=== PATIENT | female | born 1965 | race Caucasian/White ===

== ENCOUNTER → 2018-04-30 08:51 | Outpatient (CLI) | payer BC, SELFPAY ==
--- NOTE | 2018-04-30 08:52 | US_ITS ---
US breast RT complete INDICATION: Palpable abnormality of the right breast ORDERING PHYSICIAN: Dexter Weinstien MD PATIENT AGE: 52 years COMPARISON: 09/15/2014 TECHNIQUE: Standard ultrasound images performed FINDINGS: At 12:00 there is a 2.5 x 2.6 cm cyst with good through transmission of sound, no perceptible wall, and no internal echoes. This corresponds to the palpable abnormality. At 10:00 there is a 1 cm cyst. 1 cm cyst at 5:00 Small nodes are in the axilla. IMPRESSION: Palpable corresponds to a 2.5 cm cyst. Other cysts are also present. BI-RADS Category: 2 Benign Finding(s) Patient is currently due for screening mammogram With last mammogram having been performed in September 29, 2014 (A letter has been sent to the patient regarding results of the study.)
== END ==
PROVIDERS: PCP Family Medicine; Visit Provider Nurse Practitioner Obstetrics & Gynecology
DX: N60.11 Diffuse cystic mastopathy of right breast (principal)
CPT/HCPCS: 76641

== ENCOUNTER → 2018-05-03 14:55 | Outpatient (CLI) | payer BC, SELFPAY ==
--- NOTE | 2018-05-03 15:01 | US_ITS ---
ULTRASOUND THYROID HISTORY:. Bilateral thyroid glands removed. : HYPOTHYROISM,H/O TOTAL THYOIDECTOMY PROCEDURE: Multiple sagittal and transverse ultrasound images of the thyroid. Region COMPARISON. Is made to May 2012 enlarge right lobe with absent left lobe at that time FINDINGS Thyroid glands removed bilaterally. Loosely large inhomogeneous gland on right 2012 is been removed. RIGHT Lobe: Surgically absent. LEFT Lobe: Surgically absent. On the left there is a small area of tissue at the bed of the thyroid. 7.7 mm transverse x 7.9 mm length as 3.5 mm AP. The technologist question if this may reflect a residual area of left thyroid is there is some flow to this structure. However it is fairly hyperechoic for such and may merely reflect areas of fatty scarring. Nonspecific. Unimpressive. IMPRESSION: Right and left lobe is surgically removed. Small area of residual tissue at the bed of the left left thyroid noted. Nonspecific Although this could reflect a small piece of residual thyroid gland it is somewhat increased echogenicity for such. Thus may may reflect some focal fatty scarring in this region. Subtle minimal observation in either case
== END ==
PROVIDERS: PCP Family Medicine; Visit Provider Emergency Medicine
DX: E03.9 Hypothyroidism, unspecified (principal); E89.0 Postprocedural hypothyroidism
CPT/HCPCS: 76536

== ENCOUNTER → 2019-05-03 08:49 | Outpatient (CLI) | payer BC, SELFPAY ==
[2019-05-03 09:34] LABS: Basophils % 0.5 % (0.1-2.0); Eosinophils # 0.4 K/mm3 (0.0-0.4); Eosinophils % 8.8 % (0.1-12.0); Hematocrit 43.7 % (37.0-47.0); Hemoglobin 14.1 g/dL (12.2-16.2); Lymphocytes # 1.4 K/mm3 (0.7-4.5); Lymphocytes % 29.9 % (10-50); Mean Corpuscular HGB Conc 32.3 g/dL (31.8-35.4); Mean Corpuscular Hemoglobin 30.1 pg (27.0-31.2); Mean Corpuscular Volume 93.4 fl (81-99); Mean Platelet Volume 7.8 fl (7.4-10.4); Monocytes # 0.2 K/mm3 (0.1-1.0); Monocytes % 4.1 % (1.7-9.3); Neutrophils # 2.7 K/mm3 (1.8-7.8); Neutrophils % 56.7 % (37.0-80.0); Platelet Count 380 K/mm3 (142-424); Red Blood Count 4.68 M/mm3 (4.20-5.40); Red Cell Distribution Width 13.1 % (11.5-17.5); White Blood Count 4.7 K/mm3 (4.8-10.8)
[2019-05-03 10:31] LABS: Alanine Aminotransferase 25 U/L (12-78); Albumin Level 4.1 gm/dL (3.4-5.0); Albumin/Globulin Ratio 1.3 (1.1-1.8); Alkaline Phosphatase 75 U/L (46-116); Anion Gap 10.7 mEq/L (5-15); Aspartate Amino Transferase 17 U/L (15-37); Bilirubin,Total 0.5 mg/dL (0.2-1.0); Blood Urea Nitrogen 17 mg/dL (7-18); Calcium 9.7 mg/dL (8.5-10.1); Carbon Dioxide 34 mmol/L (21.0-32.0); Chloride 102 mmol/L (98-107); Chol/HDL Ratio 3.1 (1-3.5); Cholesterol 231 mg/dL (140-200); Creatinine,Serum 0.86 mg/dL (0.55-1.02); Estimated Glomerular Filt Rate 69 ml/min (>60); Free Thyroxine Index 3.3 ug/dL (5.93-13.13); GFR (African American) 83 ML/MIN (>60); Globulin 3.2 gm/dl (1.3-3.2); Glucose 95 mg/dL (74-106); HDL Cholesterol 75 mg/dL (29-89); LDL Cholesterol 145 mg/dL (0-130); Potassium 4.7 mmoL/L (3.5-5.1); Sodium 142 mmol/L (136-145); T4 (Thyroxine) 9.9 ug/dl (4.7-13.3); Thyroid Stimulating Hormone 0.38 uIU/ml (0.358-3.740); Total Protein,Serum 7.3 gm/dL (6.4-8.2); Triglycerides 53 mg/dL (30-200); Triiodothryronine (T3) Uptake 33 % (31-39); VLDL Cholesterol 11 mg/dL (0-40)
[2019-05-04 10:50] LABS: Triiodothyronine (T3) Free 2.9 pg/mL (2.0-4.4)
== END ==
PROVIDERS: Visit Provider Nurse Practitioner Obstetrics & Gynecology
DX: Z01.419 Encounter for gynecological examination (general) (routine) without abnormal findings (principal); R53.83 Other fatigue
CPT/HCPCS: 36415; 80053; 80061; 84436; 84443; 84479; 84481; 85025

== ENCOUNTER → 2019-05-06 12:44 | Outpatient (CLI) | payer BC, SELFPAY ==
--- NOTE | 2019-05-06 13:00 | US_ITS ---
PROCEDURE: US THYROID CLINICAL INDICATION: HYPOTHYROIDISM,S/P THYROIDECTOMY Evaluate for residual thyroid tissue COMPARISON: THY US thyroid from 05/03/2018 FINDINGS: Patient has had prior bilateral thyroidectomy. As before there was a questionable small amount of residual tissue on the left at 10 x 4 mm. This however is questionable. No evidence of residual tissue on the right.. IMPRESSION: Questionable residual small amount of thyroid tissue on the left as before Dictated by: Cade Bai MD 05/06/2019 17:28 Electronically signed by Cade Bai MD in [place] 05/06/2019 17:28
== END ==
PROVIDERS: PCP Family Medicine; Visit Provider Emergency Medicine
DX: E03.9 Hypothyroidism, unspecified (principal); Z98.890 Other specified postprocedural states
CPT/HCPCS: 76536

== ENCOUNTER → 2019-07-19 16:24 | Outpatient (CLI) | payer BC, SELFPAY | PROVIDERS: Visit Provider Urology | DX: N39.0 Urinary tract infection, site not specified (principal) | CPT/HCPCS: 87086 ==

== ENCOUNTER → 2019-09-20 09:20 | Outpatient (POV) | payer BC, SELFPAY | PROVIDERS: Visit Provider Dermatology | DX: Z00.00 Encounter for general adult medical examination without abnormal findings (principal) ==

== ENCOUNTER → 2020-01-27 09:04 | Outpatient (CLI) | payer BC, SELFPAY ==
[2020-01-27 10:06] LABS: Anion Gap 8.7 mEq/L (5-15); Blood Urea Nitrogen 16 mg/dl (7-17); Calcium 9.6 mg/dl (8.4-10.2); Carbon Dioxide 34 mmol/L (22.0-30.0); Chloride 99 mmol/L (98-107); Chol/HDL Ratio 2.9 (1-3.5); Cholesterol 239 mg/dl (140-200); Estimated Glomerular Filt Rate 58 ml/min (>60); GFR (African American) 70 ML/MIN (>60); Glucose 98 mg/dl (74-100); HDL Cholesterol 83 mg/dl (40-60); Potassium 4.7 mmoL/L (3.5-5.1); Sodium 137 mmol/L (136-145); Triglycerides 63 mg/dl (30-150); VLDL Cholesterol 13 mg/dL (0-40)
[2020-01-27 10:17] LABS: Direct LDL Cholesterol 130.09 mg/dL (100-129)
[2020-01-27 10:22] LABS: Free T4 (Free Thyroxine) 0.92 ng/dl (0.78-2.19)
[2020-01-27 10:36] LABS: Thyroid Stimulating Hormone 6.11 uIU/mL (0.465-4.68)
== END ==
PROVIDERS: Visit Provider Physician Assistant
DX: E03.9 Hypothyroidism, unspecified (principal); R94.4 Abnormal results of kidney function studies; Z13.220 Encounter for screening for lipoid disorders
CPT/HCPCS: 36415; 80048; 80061; 84439; 84443

== ENCOUNTER → 2020-05-01 14:13 | Outpatient (POV) | payer BC, SELFPAY | PROVIDERS: Visit Provider Dermatology | DX: Z00.00 Encounter for general adult medical examination without abnormal findings (principal) ==

== ENCOUNTER → 2020-12-18 10:54 | Outpatient (POV) | payer BC, SELFPAY | PROVIDERS: Visit Provider Dermatology | DX: Z00.00 Encounter for general adult medical examination without abnormal findings (principal) ==

== ENCOUNTER → 2021-09-09 10:50 | Outpatient (CLI) | payer BC, SELFPAY ==
--- NOTE | 2021-09-09 10:54 | XR_ITS ---
FINAL REPORT CLINICAL HISTORY: KNEE EFFUSION, LT, chronic pain FINDINGS: Three views of the left knee reveal no evidence of fracture or dislocation. The bony alignment is normal. There are mild degenerative changes. There is no evidence of joint effusion. No localized soft tissue abnormality is seen. IMPRESSION: No acute abnormality identified. Reviewed, Interpreted and Dictated by Giles Singh III, MD Transcribed by Leyda Ortega Authenticated by Giles Singh III, MD on 09/09/2021 12:34:51 PM [facility]
--- NOTE | 2021-09-09 10:54 | XR_ITS ---
FINAL REPORT CLINICAL HISTORY: LT HAND PAIN, chronic, no known injury FINDINGS: LEFT HAND Three views demonstrate no acute fracture or dislocation. The visualized joint spaces are normally aligned. There are mild degenerative changes at the first carpometacarpal joint. The soft tissues are unremarkable. IMPRESSION: No acute process. Reviewed, Interpreted and Dictated by Giles Singh III, MD Transcribed by Leyda Ortega Authenticated by Giles Singh III, MD on 09/09/2021 12:34:58 PM [facility]
== END ==
PROVIDERS: PCP Family Medicine; Visit Provider Nurse Practitioner Family
DX: M25.462 Effusion, left knee (principal); M79.642 Pain in left hand
CPT/HCPCS: 73130; 73562

== ENCOUNTER → 2021-12-31 09:14 | Outpatient (POV) | payer BC, SELFPAY | PROVIDERS: Visit Provider Dermatology | DX: Z00.00 Encounter for general adult medical examination without abnormal findings (principal) ==

== ENCOUNTER 2022-08-10 09:16 | Emergency (ER) | payer BC, OTHER, SELFPAY ==
--- NOTE | 2022-08-10 09:22 | EXP.UTC ---
Discharge Plan Disposition Patient Disposition: Home, Self-Care Condition: Good Prescriptions Prescriptions: New azithromycin [Zithromax] 250 mg tablet 250 mg PO UD DOSE PK Qty: 6 0RF Rx Instructions: Take two (2) tablets today, then one (1) tablet days #2 thru #5 benzonatate [benzonatate] 100 mg capsule 100 mg PO TIDP PRN (Reason: Cough) Qty: 30 0RF methylprednisolone 4 mg Tablets,Dose Pack 4 mg PO DIRECTED Qty: 21 0RF No Action levothyroxine 88 MCG tablet 88 mcg PO DAILY duloxetine 60 MG capsule,delayed release(DR/EC) 60 mg PO DAILY trazodone 50 mg tablet 50 mg PO HS rosuvastatin 5 mg tablet 5 mg PO HS Referrals Follow up/Referrals: Lyly Bradley MD [Primary Care Provider] - See instructions Activity Restrictions/Add. Instructions Additional Instructions/Restrictions: Drink plenty of fluids. Take tylenol or ibuprofen for pain or fever. Take the medications as directed. Follow up with your regular doctor. GO TO THE ER FOR ANY WORSENING SYMPTOMS Clinical Impressions Clinical Impression: Bronchitis Instructions Patient Instructions: Acute Bronchitis, DI for Acute Bronchitis Discharge ED Provider: Demetrio Gibbs [facility] [place] General Stated complaint: Sore throat,fever Time Seen by Provider: 08/10/22 09:22 History of Present Illness Provider Complaint: She states that for the past 2 days she has had chest congestion, sinus congestion and sore throat. Related Data Home Medications Medication Instructions Recorded Confirmed duloxetine 60 mg capsule,delayed 60 mg PO DAILY Depression 04/18/18 08/10/22 release levothyroxine 88 mcg tablet 88 mcg PO DAILY THYROID REPLACEMENT 04/18/18 08/10/22 rosuvastatin 5 mg tablet 5 mg PO HS Cholesterol 08/10/22 08/10/22 trazodone 50 mg tablet 50 mg PO HS SLEEP 08/10/22 08/10/22 Previous Rx's Medication Instructions Recorded azithromycin 250 mg tablet 250 mg PO UD DOSE PK #6 tabs 08/10/22 (Zithromax) benzonatate 100 mg capsule 100 mg PO TIDP PRN Cough #30 caps 08/10/22 methylprednisolone 4 mg tablets in 4 mg PO DIRECTED #21 tabs 08/10/22 a dose pack Allergies Allergy/AdvReac Type Severity Reaction Status Date / Time No Known Drug Allergies Allergy Unknown Verified 07/19/19 15:15 [NO KNOWN DRUG ALLERGIES] [facility] Disclaimer: The information contained in this section may have been updated after the patient was seen, as this information can be updated by other users. Medical History Anxiety Depression Hyperlipidemia Thyroid disease Urinary tract infection Surgical History History of tonsillectomy Social History Smoking Status: Never smoker alcohol intake: never substance use type: denies use current occupational status: employed Travel in the last 8 weeks: None housing: house caffeine: No ROS Obtained: Yes All systems reviewed & no additional complaints except as documented Constitutional Constitutional: Reports chills and Reports fever(s) Eyes Eyes: Denies eye discharge ENT Ears, Nose, Mouth, and Throat: Reports as per HPI Cardiovascular Cardiovascular: Denies chest pain Respiratory Respiratory: Denies chest congestion and Reports cough Gastrointestinal Gastrointestingal: Reports nausea; Denies abdominal pain, constipation, cramping, diarrhea or vomiting Musculoskeletal Musculoskeletal: Denies arthralgias Integumentary/Breasts Skin/Breast: Denies rash Neurologic Neurologic: Denies paresthesias Physical Exam General General appearance: alert and in no apparent distress Head Head exam: atraumatic, normocephalic and normal inspection Eye Eye exam: Present normal appearance, PERRL and EOMI ENT ENT exam: Present normal exam, normal oropharynx, mucous membranes moist, TM's normal jose manuel
[2022-08-10 09:30] VITALS: BP 122/69; PULSE 70; RESP 20; TEMP 36.6; O2SAT 97; BMI 22.0
[2022-08-10 09:43] LABS: UTC Strep Screen (Rapid) Negative (Negative)
[2022-08-10 10:27] VITALS: BP 122/69; PULSE 70; RESP 20; TEMP 36.6; O2SAT 97
[2022-08-10 10:45] LABS: Adenovirus,PCR Not Detected (NotDetected); Bordetella Pertussis Not Detected (NotDetected); Chlamydophila Pneumoniae, PCR Not Detected (NotDetected); Coronavirus 19, PCR Not Detected (NotDetected); Coronavirus 229E Not Detected (NotDetected); Coronavirus NL63 Not Detected (NotDetected); Coronavirus OC43 Not Detected (NotDetected); Coronovirus HKU1,PCR Not Detected (NotDetected); Human Metapneumovirus Not Detected (NotDetected); Influenza A, PCR Not Detected (NotDetected); Influenza AH1, 2009 Not Detected (NotDetected); Influenza AH1, PCR Not Detected (NotDetected); Influenza AH3,PCR Not Detected (NotDetected); Influenza B, PCR Not Detected (NotDetected); Mycoplasma Pneumoniae, PCR Not Detected (NotDetected); Parainfluenza 1, PCR Not Detected (NotDetected); Parainfluenza 2, PCR Not Detected (NotDetected); Parainfluenza 3, PCR Not Detected (NotDetected); Parainfluenza 4, PCR Not Detected (NotDetected); Respiratory Syncytial Virus Not Detected (NotDetected); Rhinovirus/Enterovirus Not Detected (NotDetected)
== END 2022-08-10 10:30 | disposition home or self-care (01) ==
PROVIDERS: Emergency Provider Nurse Practitioner Family; PCP Family Medicine
DX: J40 Bronchitis, not specified as acute or chronic (principal)
CPT/HCPCS: 87581; 87632; 87798; 87880; 99212; 99213; C9803; G0463; U0003; U0005

== ENCOUNTER → 2022-11-06 10:31 | Outpatient (CLI) | payer BC, OTHER, SELFPAY ==
--- NOTE | 2022-11-06 10:40 | CT_ITS ---
FINAL REPORT TECHNIQUE: Thin section axial images were obtained from the lung bases to the pubic symphysis without IV contrast. Coronal reconstruction images were obtained from the axial data. Exam was performed using dose reduction technique. CLINICAL HISTORY: Abdominal pain COMPARISON: none FINDINGS: There are no renal or ureteral stones. There is no hydronephrosis or perinephric stranding. The gallbladder is present. The remaining unenhanced solid abdominal organs are unremarkable. There is no evidence of small bowel obstruction. The appendix is normal. There are mildly thickened small bowel loops in the left abdomen. Enteritis can have this appearance. The uterus is present. There is free fluid in the pelvis which may be physiologic. There is no lymphadenopathy. No acute osseous abnormality is identified. IMPRESSION: No renal or ureteral stone. No hydronephrosis. Fluid-filled mildly thick walled small bowel loops in the left abdomen which can be seen with enteritis. Reviewed, Interpreted and Dictated by Katie Mi MD Transcribed by Annabelle Wilkins Authenticated and [facility]
[2022-11-06 13:47] LABS: Alanine Aminotransferase 31 U/L (12-78); Albumin Level 4.6 g/dl (3.5-5.0); Albumin/Globulin Ratio 1.8 (1.1-1.8); Alkaline Phosphatase 61 U/L (38-126); Amylase 66 U/L (30-110); Anion Gap 12.1 mEq/L (5-15); Aspartate Amino Transferase 33 U/L (14-36); Bilirubin,Total 0.5 mg/dl (0.2-1.3); Blood Urea Nitrogen 15 mg/dl (7-17); Calcium 9.4 mg/dl (8.4-10.2); Carbon Dioxide 34 mmol/L (22.0-30.0); Chloride 97 mmol/L (98-107); Estimated Glomerular Filt Rate 64 ml/min (>60); GFR (African American) 78 ML/MIN (>60); Globulin 2.6 g/dL (1.3-3.2); Glucose 95 mg/dl (74-100); Lipase 77 U/L (23-300); Potassium 5.1 mmoL/L (3.5-5.1); Sodium 138 mmol/L (136-145); Total Protein,Serum 7.2 g/dl (6.3-8.2)
== END ==
PROVIDERS: PCP Family Medicine; Visit Provider Physician Assistant
DX: R10.13 Epigastric pain (principal)
CPT/HCPCS: 36415; 74176; 80053; 82150; 83690

== ENCOUNTER 2023-04-29 20:24 | Emergency (ER) | payer BC, OTHER, SELFPAY ==
[2023-04-29] VITALS (7 sets, daily range): BP systolic 122–146; BP diastolic 68–85; PULSE 61–77; RESP 15–20; TEMP 36.5–36.7; O2SAT 97–99; BMI 21.8
--- NOTE | 2023-04-29 20:35 | XR_ITS ---
PROCEDURE INFORMATION: Exam: XR Right Ankle Exam date and time: 04/29/2023 9:01 PM Age: 57 years old Clinical indication: Injury or trauma; Fall; Blunt trauma; Right; Injury date: 04-29-23; Injury details: Jumped off fence injuring RT lat ankle and heel; Additional info: Fall, unable to bear weight TECHNIQUE: Imaging protocol: Radiologic exam of the right ankle. Views: 3 or more views. COMPARISON: No relevant prior studies available. FINDINGS: Bones/joints: Mildly displaced and minimally comminuted joint depression type calcaneus fracture. Calcaneal Achilles enthesophyte. Soft tissues: Heel soft tissue swelling. IMPRESSION: Mildly displaced and minimally comminuted joint depression type calcaneus fracture.
--- NOTE | 2023-04-29 20:35 | XR_ITS ---
PROCEDURE INFORMATION: Exam: XR Right Foot Exam date and time: 04/29/2023 9:01 PM Age: 57 years old Clinical indication: Injury or trauma; Fall; Blunt trauma; Foot; Right; Injury date: 04-29-23; Injury details: Jumped off fence injuring RT lat ankle and heel; Additional info: Fall; Unable to bear weight TECHNIQUE: Imaging protocol: Radiologic exam of the right foot. Views: 3 or more views. COMPARISON: No relevant prior studies available. FINDINGS: Bones/joints: Mildly displaced and minimally comminuted joint depression type calcaneus fracture. Calcaneal Achilles enthesophyte. Soft tissues: Heel soft tissue swelling. IMPRESSION: Mildly displaced and minimally comminuted joint depression type calcaneus fracture.
--- NOTE | 2023-04-29 20:36 | XR_ITS ---
PROCEDURE INFORMATION: Exam: XR Right Tibia and Fibula Exam date and time: 04/29/2023 9:01 PM Age: 57 years old Clinical indication: Injury or trauma; Fall; Blunt trauma; Lower leg; Right; Injury date: 04-29-23; Injury details: Jumped off fence injuring RT lat ankle and heel; Additional info: Fall, unable to bear weight TECHNIQUE: Imaging protocol: Radiologic exam of the right tibia and fibula. Views: 2 views. COMPARISON: No relevant prior studies available. FINDINGS: Bones/joints: Calcaneus fracture better visualized on dedicated foot and ankle radiographs. Soft tissues: Unremarkable. IMPRESSION: Calcaneus fracture better visualized on dedicated foot and ankle radiographs.
--- NOTE | 2023-04-29 20:45 | XR_ITS ---
PROCEDURE INFORMATION: Exam: XR Right Calcaneus Exam date and time: 04/29/2023 9:04 PM Age: 57 years old Clinical indication: Injury or trauma; Fall; Blunt trauma; Other: Calcaneous; Injury date: 04-29-23; Injury details: Jumped off fence injuring RT lat ankle and heel; Additional info: Calc pain after fall TECHNIQUE: Imaging protocol: Radiologic exam of the right calcaneus. Views: 2 or more views. COMPARISON: CR XR ANKLE RT MIN 3V 04/29/2023 9:01 PM FINDINGS: Bones/joints: Mildly displaced and minimally comminuted joint depression type calcaneus fracture. Calcaneal Achilles enthesophyte. Soft tissues: Heel soft tissue swelling. IMPRESSION: Mildly displaced and minimally comminuted joint depression type calcaneus fracture.
--- NOTE | 2023-04-29 21:06 | HMH.EDGENADL ---
Discharge Plan Disposition Patient Disposition: Xfer Short-Term Hosp Chief Complaint: Extremity Injury, Lower Prescriptions Prescriptions: No Action famotidine 20 mg tablet 40 mg PO DAILY Qty: 180 3RF rosuvastatin 10 mg tablet 10 mg PO DAILY Qty: 90 0RF omeprazole 20 mg capsule,delayed release(DR/EC) 40 mg PO DAILY Qty: 180 2RF levothyroxine 88 MCG tablet 88 mcg PO DAILY duloxetine 60 MG capsule,delayed release(DR/EC) 60 mg PO DAILY trazodone 50 mg tablet 50 mg PO HS Referrals Follow up/Referrals: Lyly Bradley MD [Primary Care Provider] - See instructions Clinical Impressions Clinical Impression: Closed displaced fracture of calcaneus Qualifiers: Encounter type: initial encounter Calcaneus location: body Laterality: right Qualified Code(s): S92.011A - Displaced fracture of body of right calcaneus, initial encounter for closed fracture Discharge ED Provider: Everett Russo General Adult HPI General Chief complaint: Extremity Injury, Lower Stated complaint: AO 04/29 fall, right heel pain Time Seen by Provider: 04/29/23 20:27 Mode of Arrival: Family Vehicle Source of Information: Patient Limitations: No Limitations Description of Symptoms (Recalled from ER Triage Doc. by RN): 57 yo female presents after landing incorrectly [place]uring her right heel. Denies any intake of pain meds. Attempted to use some ice but is worried it is really messed up . Unable to bear weight on that leg. minimal swelling. History of Present Illness HPI narrative: 57-year-old female with no relevant medical history presenting with right foot injury. Patient states that she jumped over a fence just prior to arrival, landed on a rock. [place] immediate pain in her right heel, unable to bear weight secondary to severe pain. No other injury was sustained. Severe, nonradiating, stabbing pain right heel. No neurovascular deficits. Related Data Home Medications Medication Instructions Recorded Confirmed duloxetine 60 mg capsule,delayed 60 mg PO DAILY Depression 04/18/18 04/28/23 release levothyroxine 88 mcg tablet 88 mcg PO DAILY THYROID REPLACEMENT 04/18/18 04/28/23 trazodone 50 mg tablet 50 mg PO HS SLEEP 08/10/22 04/28/23 Previous Rx's Medication Instructions Recorded famotidine 20 mg tablet 40 mg PO DAILY GERD #180 tabs 04/29/23 omeprazole 20 mg capsule,delayed 40 mg PO DAILY GERD #180 caps 04/29/23 release rosuvastatin 10 mg tablet 10 mg PO DAILY #90 tabs 04/29/23 Allergies Allergy/AdvReac Type Severity Reaction Status Date / Time No Known Drug Allergies Allergy Unknown Verified 04/28/23 15:06 [NO KNOWN DRUG ALLERGIES] [facility] Disclaimer: The information contained in this section may have been updated after the patient was seen, as this information can be updated by other users. Medical History Anxiety Depression GERD (gastroesophageal reflux disease) Hyperlipidemia Thyroid disease Urinary tract infection Surgical History History of tonsillectomy Social History Smoking Status: Unknown if ever smoked alcohol intake: never substance use type: denies use current occupational status: employed Travel in the last 8 weeks: None housing: house caffeine: No ROS Obtained: Yes All systems reviewed & no additional complaints except as documented Physical Exam General General appearance: alert, in no apparent distress and other ( ) Head Head exam: atraumatic and normocephalic Eye Eye exam: Present normal appearance, PERRL and EOMI ENT ENT exam: Present mucous membranes moist Neck Neck exam: Present normal inspection, full ROM and trachea midline Respiratory Respiratory exam: Absent respiratory distress, wheezes, stridor, accessory muscle use
--- NOTE | 2023-04-29 21:20 | CT_ITS ---
PROCEDURE INFORMATION: Exam: CT Right Lower Extremity Without Contrast, Ankle Exam date and time: 04/29/2023 9:44 PM Age: 57 years old Clinical indication: Abnormal findings; Abnormal imaging study; XR calcaneus; Additional info: Fracture eval TECHNIQUE: Imaging protocol: CT of the right lower extremity without contrast was performed. Exam focused on the ankle. 3D rendering (Not supervised by radiologist): MIP and/or 3D reconstructed images were created by the technologist. Radiation optimization: All CT scans at this facility use at least one of these dose optimization techniques: automated exposure control; mA and/or kV adjustment per patient size (includes targeted exams where dose is matched to clinical indication); or iterative reconstruction. REPORTING DATA: Count of CT and Cardiac NM exams in prior 12 months: This patient has received [address] and 0 known cardiac nuclear medicine studies in the 12 months prior to the current study. COMPARISON: CR XR ANKLE RT MIN 3V 04/29/2023 9:01 PM FINDINGS: Bones/joints: Comminuted calcaneal depression type fracture with fracture lines extending from the plantar surface of the calcaneal tuberosity to the angle of [place] and another fracture line extends just posterior to the posterior subtalar facet. 2-3 mm of posterior facet fragment depression. Remaining bones are intact and normal alignment. Calcaneal Achilles enthesophyte. Soft tissues: Hindfoot subcutaneous soft tissue edema. Soft tissue stranding within Kager's fat pad. IMPRESSION: Mildly displaced and comminuted calcaneus depression type fracture as above.
--- NOTE | 2023-04-29 21:41 | PC.NURSE ---
pt transported to CT scan
--- NOTE | 2023-04-29 21:50 | PC.NURSE ---
Called [facility] about transfer of the pt for Ortho. [facility] to call back with details. MARIAELENA
--- NOTE | 2023-04-29 22:11 | PC.NURSE ---
called back, speaking to Dr Russo now. CR
--- NOTE | 2023-04-29 22:28 | PC.NURSE ---
called report to Parul EL at [facility]. pt getting transferred to ER for calcaneous fx and will be going by [facility]
--- NOTE | 2023-04-29 22:29 | PC.NURSE ---
Per Dr Russo, pt placed in a short leg posterior splint on her Right ankle/leg. Pt given instructions on care. CR
--- NOTE | 2023-04-29 22:40 | PC.NURSE ---
PT signed paperwork and resting comfortably awaiting for ride to show up. offered patient drink and warm blanket
--- NOTE | 2023-04-29 23:32 | PC.NURSE ---
pt florenciae present in ER, gave folder of paperwork to taxi driver supervisor and patient assisted to car in wheelchair
== END 2023-04-29 23:34 | disposition short-term general hospital (02) ==
PROVIDERS: Emergency Provider Emergency Medicine; PCP Family Medicine
DX: S92.011A Displaced fracture of body of right calcaneus, initial encounter for closed fracture (principal); F41.9 Anxiety disorder, unspecified; F32.A Depression, unspecified; K21.9 Gastro-esophageal reflux disease without esophagitis; E78.5 Hyperlipidemia, unspecified; E07.9 Disorder of thyroid, unspecified; W22.8XXA Striking against or struck by other objects, initial encounter
CPT/HCPCS: 73590; 73610; 73630; 73650; 73700; 99285

== ENCOUNTER → 2023-05-26 14:03 | Outpatient (CLI) | payer BC, OTHER, SELFPAY | PROVIDERS: PCP Family Medicine; Visit Provider Nurse Practitioner | DX: R00.2 Palpitations (principal) | CPT/HCPCS: 93270 ==

== ENCOUNTER → 2023-05-29 06:22 | Outpatient (CLI) | payer BC, OTHER, SELFPAY ==
--- NOTE | 2023-05-29 | CA_ITS ---
APPROVED REPORT Exam: Pharmacologic Technologist: Mita Asher, Ht: 5 ft 9 in Wt: 146 lbs BSA: 1.81 m2 HR: 71 bpm BP: 107/68 mmHg Rhythm: NSR Medical History Medications: Omeprazole,,,,, Levothyroxine,,,,, Famotidine,,,,, DulOXETINE,,,,, Trazodone,,,,, Hydroxychloroquine,,,,, RoSUVASTATIN,,,,, Stress Test Details Test: LEXISCAN Reason for pharmacologic stress test: physical limitation. HR Resting HR: 73 bpm Max Heart Rate (APMHR): 162 bpm Max HR Achieved: 111 bpm Target HR (85% APMHR): 138 bpm % of APMHR: 69 Recovery HR: 84 bpm BP Resting BP: 107.0/68.0 mmHg Max BP: 119.0/64.0 mmHg Recovery BP: 114.0/68.0 mmHg ECG Resting ECG: NSR, rightward axis, ST abns inferiorly & laterally Stress ECG: No significant ST changes Arrhythmia: None Clinical Exercise duration: 04:06 min Highest Stage Achieved: Exercise capacity: 1.0 METs Stress ECG Conclusion Symptoms: Chest heaviness, mild SOA, mild head & stomach discomfort. Arrhythmias/Ectopy: None. ST-T Changes: No significant ST changes Conclusion: Nondiagnostic Lexiscan stress test due to baseline abnormalities. Myoview images reported separately. Test Summary REST . . . . . . . Resting REST 05:15 . . 73 . 107/ 68 . . Stage 1 01:00 . . 90 . . . . Stage 2 01:00 . . 108 . 119/ 64 . . Stage 3 01:00 . . 104 . 117/ 68 . . Stage 4 01:00 . . 96 . 105/ 67 . . Stage 4 01:06 . . 97 . 105/ 67 . Stop exercise at 04:06 RECOVERY 01:00 . . 98 . . . . RECOVERY 02:00 . . 93 . 105/ 74 . . RECOVERY 03:00 . . 85 . 105/ 74 . . RECOVERY 04:00 . . 90 . 114/ 68 . . RECOVERY 05:00 . . 85 . 114/ 68 . . RECOVERY 05:19 . . 88 . 114/ 68 . . Electronically signed by : Lindsey Calderón MD 05/31/2023 22:38:01
--- NOTE | 2023-05-29 06:26 | NM_ITS ---
APPROVED REPORT Exam: Nuclear Stress Test Indication: CHEST PAIN..FATIGUE Patient Location: Outpatient Stress Tech: Mita Church [place] Tech:Vandana Collazo JOENelson RT(R)(N) Ht: 5 ft 9 in Wt: 148 lbs Bra Size: 36C HR: 73 bpm BP: 107/68 mmHg BSA: 1.82 m2 TID: 1.10 BMI: 21.8 History: CHEST PAIN..FATIGUE Procedure: Patient received 0.4 mg of intravenous Lexiscan, resting heart rate 73 bpm, resting blood pressure 107/68 mmHg, with Lexiscan maximum heart rate achieved was 111 bpm which is 85 % of the maximum predicted heart rate and blood pressure was 119/64 mmHg. With Lexiscan, patient denied any complaint of chest pain. Cardiac Stress and Resting SPECT Images: Cardiac Stress and Resting SPECT images were obtained using technetium 99m Myoview 32.8 mCi stress and 10.66 mCi at rest. Resting and stress imaging in supine and prone positions demonstrate no evidence of fixed or reversible perfusion defects. Gated imaging demonstrates normal global and regional LV systolic function. LVEF is calculated at 56%. Conclusion: No evidence of fixed or reversible perfusion defects. Gated imaging demonstrates normal global and regional LV systolic function. LVEF is calculated at 56%. Electronically signed by : Lindsey Calderón MD 05/31/2023 22:39:23
== END ==
PROVIDERS: PCP Family Medicine; Visit Provider Nurse Practitioner
DX: R07.9 Chest pain, unspecified (principal); R94.31 Abnormal electrocardiogram [ECG] [EKG]
CPT/HCPCS: 78452; 93017; A9502; J2785

== ENCOUNTER → 2023-06-02 13:40 | Outpatient (CLI) | payer BC, OTHER, SELFPAY ==
--- NOTE | 2023-06-02 13:43 | CA_ITS ---
APPROVED REPORT EXAM: Comprehensive 2D, Doppler, and color-flow Echocardiogram Ambulatory Nurse: Mariluz Rico CRT Ht: 5 ft 9 in Wt: 146lbs BSA: 1.81 BP: 114/76 mmHg Indications: Chest Pain, Hyperlipidemia, connective tissue disorder 2D Dimensions LVOT 1.98 cm (M/F) 1.5-2.5 M-Mode Dimensions RVDd 2.02 cm (0.9-2.6) LA Diam 2.08 cm (1.9-4.0) LVDd 4.33 cm (3.5-5.7) Ao Diam 3.31 cm (2.0-3.7) LVDs 2.82 cm (3.5-5.7) IVSd 1.00 cm (0.6-1.1) PWd 0.71 cm (0.6-1.1) EF (Teich) 64.30% FS 34.90% EDV (Teich) 84.40 mL TAPSE 2.19 (<1.7) ESV (Teich) 30.10 mL LV Diastology E Decel Time 240.00 (160-240 msec) E/A Ratio 0.97 MED E' 7.80 (< 7 cm/sec) MED A' 10.20 cm/s E'/MED E' Ratio 5.86 (>14) LAT E' 8.90 (<10 cm/sec) LAT A' 13.20 cm/s E/LAT E' Ratio 5.13 (>14) Aortic Valve AO Peak GR. 3.50 mmHg Mitral Valve MV A Velocity 47.00 (40-130 cm/s) E/A Ratio 0.97 MV Decel. Time 240.00 (160-240 ms) Tricuspid Valve TR P. Velocity 212.00 cm/s RAP Estimate 10.00 mmHg RVSP 28.00 mmHg Left Ventricle The left ventricle is normal size. The left ventricular systolic function is normal. The left ventricular ejection fraction is within the normal range. There is normal left ventricular wall thickness. There is normal LV segmental wall motion. The left ventricular diastolic function is normal. LVEF is 60-65%. Right Ventricle The right ventricle is mildly dilated. The right ventricular systolic function is normal. Atria The left atrium size is normal. The right atrium size is normal. There is no Doppler evidence of interatrial shunt. Aortic Valve The aortic valve opens well. There is no aortic valvular stenosis. No aortic regurgitation is present. Mitral Valve The mitral valve is normal in structure. No evidence of mitral valve stenosis. There is no mitral valve regurgitation noted. Tricuspid Valve The tricuspid valve leaflets are thin and pliable. Trace tricuspid regurgitation. There is insufficient TR jet to estimate RVSP. Pulmonic Valve The pulmonary valve is normal in structure. Trace pulmonic regurgitation. Great Vessels The aortic root is normal in size. The ascending aorta is normal in size. IVC is normal in size and collapses >50% with inspiration. Pericardium There is no pericardial effusion. Other Information Study Quality: Technically Difficult Conclusion This was a technically difficult study due to poor acoustic windows. Normal biventricular systolic function. Mild RV dilatation. No significant valvular stenosis or regurgitation. Electronically signed by : Lindsey Calderón MD 06/03/2023 15:02:26
== END ==
PROVIDERS: PCP Family Medicine; Visit Provider Nurse Practitioner
DX: R07.9 Chest pain, unspecified (principal); R94.31 Abnormal electrocardiogram [ECG] [EKG]
CPT/HCPCS: 93306

== ENCOUNTER 2023-08-18 09:25 | Outpatient (CLI) | payer BC, OTHER, SELFPAY ==
--- NOTE | 2023-08-18 09:31 | XR_ITS ---
FINAL REPORT CLINICAL HISTORY: RT FOOT FX W/ROUTINE HEALING, POST MENOPAUSAL FINDINGS: Using L1-4, the bone mineral density of the spine is 0.956 g/cm2, corresponding to T-score of -0.8. Using the left hip, the bone mineral density of the femoral neck is 0.690 g/cm2, corresponding to a T-score of -1.4. Equivalent to a 12% risk for major osteoporotic fracture. Using the right hip, the bone mineral density of the femoral neck is 0.667 g/cm2, corresponding to a T-score of -1.6. Equivalent to a 13% risk for major osteoporotic fracture. IMPRESSION: Diminished bone mineral density of the bilateral hip consistent with osteopenia. Normal bone mineral density of the lumbar spine. Reviewed, Interpreted and Dictated by Giles Singh III, MD Transcribed by Hadley Calvert Authenticated and [facility]
== END 2023-08-18 23:59 ==
LOC: RAD 09:26
PROVIDERS: PCP Family Medicine; Visit Provider Nurse Practitioner Family
DX: Z13.820 Encounter for screening for osteoporosis (principal); S92.901D Unspecified fracture of right foot, subsequent encounter for fracture with routine healing; M85.89 Other specified disorders of bone density and structure, multiple sites
CPT/HCPCS: 77080

== ENCOUNTER 2023-11-03 14:53 | Outpatient (POV) | payer BC, OTHER, SELFPAY | END 2023-11-03 23:59 | disposition home or self-care (01) | LOC: SC 14:53 | PROVIDERS: PCP Family Medicine; Visit Provider Dermatology | DX: Z00.00 Encounter for general adult medical examination without abnormal findings (principal) ==

== ENCOUNTER 2025-06-27 09:38 | Outpatient (CLI) | payer BC, OTHER, SELFPAY ==
--- NOTE | 2025-06-27 09:44 | XR_ITS ---
FINAL REPORT CLINICAL HISTORY: CERVICAL DISC DISEASE COMPARISON: 12/29/2016 FINDINGS: CERVICAL SPINE 5 views were obtained. There is no acute fracture or malalignment. Moderate disc space narrowing at C5-6 and C6-7. Small posterior osteophytes are noted at C5-6 and C6-7. The facets are properly aligned. Neural foramina are adequately patent. IMPRESSION: Degenerative/chronic changes without acute process. Reviewed, Interpreted and Dictated by Tim Solis MD Transcribed by Annbaelle Wilkins Authenticated and [facility]
== END 2025-06-27 23:59 | disposition home or self-care (01) ==
LOC: RAD 09:40
PROVIDERS: PCP Nurse Practitioner Family; Visit Provider Nurse Practitioner Family
DX: M47.812 Spondylosis without myelopathy or radiculopathy, cervical region (principal)
CPT/HCPCS: 72050

== ENCOUNTER 2025-07-25 15:00 | Outpatient (RCR) | payer BC, OTHER, SELFPAY ==
--- NOTE | 2025-07-11 15:03 | HMH.PTOPEV ---
PT Evaluation Rehab PT Outpatient Evaluation Start: 07/11/25 14:49 Freq: Status: Active Protocol: Document 07/11/25 14:52 PHORTRAE (Rec: 07/11/25 15:03 PHORNE [id number]) E-signed By Ernesto Gee, PT Outpatient Therapy Subjective History Subjective History This is the initial PT eval for Annabelle De La Paz, 59 yowf who presents with c/o increased neck pain, worse on the R side, x ~5-6 mis with insidious onset of symptoms. She reports no numbness or tingling in B UE. She does report frequent headaches associated with her neck pain and difficulty performing desk work or driving due to decreased neck ROM. She states, It feels like a stick being pushed into my right ear. She reports hx of thyroidectomy in the past and mixed connective tissue disease. Chief Complaint Pain Symptom Type Ache,Sharp Symptoms Relieved By Heat Symptoms Aggravated Physical Activity,Twisting,Lifting By Prior Functional None Limitations Current Functional Reaching,Lifting,Housework,Desk Work/Reading,Driving, Limitations Recreation Activity Symptom Description Constant but Variable Level of pain today 3 (0-10) Pain scale - at its 8 worst (0-10) Cervical Eval Palpation Cervical Muscles R Cervical Paraspinal,L Cervical Paraspinal,R Upper Trapezius,L Upper Trapezius Cervical/Thoracic Tenderness Palpation Findings Posture Head/C-Spine Posture Neutral Position Sitting Position Head/C-Spine Posture Neutral Position Standing Position Flexibility Deficits Upper Trapezius (L) Mild Tightness,(R) Moderate Tightness Muscle Length Levaetor Scapulae (L) Mild Tightness,(R) Moderate Tightness Muscle Length Passive Joint Mobility Cervical PIVM WNL: R OA L OA R AA L AA R C2/3 L C2/3 R C3/4 L C3/4 R C4/5 L C4/5 R C5/6 L C5/6 R C6/7 L C6/7 R C7/T1 L C7/T1 AROM Cervical Spine 0-35 Extension Active Range of Motion ( degrees) Cervical Spine 0-45 Flexion Active Range of Motion (degrees) Cervical Spine Right 0-30 Lateral Flexion Active Range of Motion (degrees) Cervical Spine Left 0-25 Lateral Flexion Active Range of Motion (degrees) Cervical Spine Right 0-55 Rotation Active Range of Motion ( degrees) Cervical Spine Left 0-55 Rotation Active Range of Motion ( degrees) MMT Bilateral Deltoid (C5) 5 Normal Biceps Brachii 5 Normal Strength Grade Wrist Extension 5 Normal Strength Grade Triceps Brachii 5 Normal Strength Grade Wrist Flexion 5 Normal Strength Grade Extensor Pollicis 5 Normal Longus Strength Grade Finger Abduction 5 Normal Strength Grade DTR Rt Biceps 2+ Lt Biceps 2+ Rt Brachioradialis 2+ Lt Brachioradialis 2+ Rt Triceps 2+ Lt Triceps 2+ Special Test C-Spine Foraminal Negative Left,Positive Right Compression ( [place]) Test C-Spine Foraminal Positive Distraction Test C-Spine Compression Negative Left,Negative Right Test Neck Disability Index Neck Disability Index Section 1: Pain The pain is moderate at the moment Intensity Section 2: Personal I can look after myself normally without causing extra Care (washing, pain dressing, etc.) Section 3: Lifting I can lift heavy weights but it gives extra pain Section 4: Reading I can read as much as I want with moderate pain in my neck Section 5: Headaches I have moderate headaches, which come frequently Section 6: I have a fair degree of difficulty in concentrating Concentration when I want to Section 7: Work I can do as much work as I want to Section 8: Driving I can drive my car as long as I want with moderate pain in my neck Section 9: Sleeping I have no trouble sleeping Section 10: I am able to engage in all my recreation activities Recreation with some pain in NDI Score 13 Outpatient Therapy Assessment Impairments Problems/ Palpation Tenderness,Impaired Range of Motion,Impaired Impairmments Strength,Impaired Endurance,Impaired Driving,Impaired Lifting,Impaired Household Care,Impaired Recreational Activities,Impaired Desk/Computer Activities,Subjective C/O Pain,Impaired Self Care/Self Management Prognosis Rehab Potential Good Comment Skilled therapy is indicated to improve cervical ROM, decrease pain, and improve scapular stability in order to aid pt return to PLOF with all ADLs and work activities. Clinical Impression Consistent with Yes Diagnosis PT Patient Goals PT Patient Goals PT Short Term In 4 wks pt will complete these goals in order to aid Patient Goals improvement in function specifically with all ADLs: 1) Reduce headache frequency to 3 days per week. 2) Decrease pain with desk work to 5/10 at worst PT Usp Patient In 8 wks pt will complete these goals in order to aid Goals improvement in function specifically with all ADLs: 1) Reduce headache frequency to 1 days per week. 2) Decrease pain with desk work to 3/10 at worst 3) Decrease NDI score to 9 or less Outpatient Therapy Plan of Care Treatment Plan May Include Therapeutic Exercise Yes Including Home Exercise Program Manual Therapy Yes Techniques Neuromuscular Re- Yes education Therapeutic Yes Activities to Return to Previous Functional/Work Level ADL/Self Care Yes Education Dry Needling Yes Thermal Modalities Yes Electrical Yes Stimulation Ultrasound/ Yes Phonophoresis Orthotics/Bracing/ Yes Splinting Eval/Re-Eval Yes Frequency Times per week 2 Duration Number of Weeks 8 Addendums This patient is a No candidate for social or vocational rehab ? Patient/Guardian Yes verbally acknowledges understanding of treatment program and consents to further treatment? Patient/Guardian Yes verbally acknowledges understanding of diagnosis, prognosis and goals for treatment? Eval Complexity PT Charges 88828 - Moderate Complexity Shoulder/Elbow Eval Shoulder Objective Measurements Elbow Objective Measurements PHYSICIAN CERTIFICATION: I certify the specified therapy services for Annabelle De La Paz are required, authorized, and reviewed every 30 days.
== END 2025-07-25 23:59 | disposition home or self-care (01) ==
LOC: PT 15:00
PROVIDERS: PCP Nurse Practitioner Family; Visit Provider Nurse Practitioner Family
DX: M50.90 Cervical disc disorder, unspecified, unspecified cervical region (principal)
CPT/HCPCS: 97014; 97110; 97140; 97162; G0283